=== PATIENT | female | born 1930 | race Caucasian/White ===

== ENCOUNTER 2022-04-08 13:16 | Inpatient (IN) | payer MEDICARE, OTHER ==
[~2022-04-08] VITALS: Ht 162.6 cm; Wt 60.8 kg
[2022-04-08] MEDS ORDERED: MAGN400O6 PO (13:49)
[2022-04-08] MEDS ORDERED: ASPI-1169 PO (13:49)
[2022-04-08] MEDS ORDERED: POVI3780 TP (13:49)
[2022-04-08] MEDS ORDERED: ONDA-97 PO (13:49)
[2022-04-08] MEDS ORDERED: METO25TA20 PO (13:49)
[2022-04-08] MEDS ORDERED: DOCU-141 PO (13:49)
[2022-04-08] MEDS ORDERED: MELA3TAB41 PO (13:49)
[2022-04-08] MEDS ORDERED: CALC500T13 PO (13:49)
[2022-04-08] MEDS ORDERED: FERR325T23 PO (13:49)
[2022-04-08] MEDS ORDERED: ACET-868 PO (13:49)
[2022-04-08] MEDS ORDERED: CRAN425C6 PO (13:49)
[2022-04-08] MEDS ORDERED: LORA-259 PO (13:49)
[2022-04-08] MEDS ORDERED: TRAM50TA2 PO (13:49)
[2022-04-08] MEDS ORDERED: ALLA266C2 TP (13:49)
[2022-04-08] MEDS ORDERED: HYDR-4076 PO (13:49)
[2022-04-08] MEDS ORDERED: HYDR453.3 TP (13:49)
[2022-04-08] MEDS ORDERED: NA P133E RC (13:49)
[2022-04-08] MEDS ORDERED: QUET25TA PO ×2 (13:49)
[2022-04-08] MEDS ORDERED: BISA10SU11 RC (13:49)
[2022-04-08] MEDS ORDERED: AMIN30LI2 PO (13:49)
[2022-04-08] MEDS ORDERED: TAMS-12 PO (13:49)
[2022-04-08] MEDS ORDERED: PANT40TA2 PO (13:49)
[2022-04-08] MEDS ORDERED: POLY17PO4 PO (13:49)
--- NOTE | 2022-04-08 13:56 | NUR ---
MOVE SHEET SUBMITTED.
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
--- NOTE | 2022-04-08 15:07 | NUR ---
SWAB FOR COVID19 SENT LAB
--- NOTE | 2022-04-08 15:16 | NUR ---
URINE SAMPLE SENT TO LAB
[2022-04-08 15:56] LABS: BILIRUBIN,URINE NEGATIVE (NEGATIVE); COLOR,URINE YELLOW (YELLOW); LEUKOCYTE ESTERASE ,URINE 3+ (NEGATIVE); NITRITE, URINE POSITIVE (NEGATIVE); PH,URINE 6.5 (5.0-8.0); PROTEIN,URINE 2+ mg/dl (NEGATIVE); UGLUCOSE NEGATIVE (NEGATIVE); UROBILINOGEN,URINE 0.2 EU/dL (0.2)
[2022-04-08 16:01] LABS: BACTERIA,URINE 3+ /HPF (None Seen); WBC,URINE 51-80 /HPF (0-3)
[2022-04-08 16:02] LABS: SQUAMOUS EPITHELIAL CELL,UR 0-2 /HPF (None Seen)
[2022-04-08 17:47] LABS: BASOPHILS # (AUTO) 0.1 K/uL (0.0-0.2); BASOPHILS % (AUTO) 0.8 % (0.0-2.0); EOSINOPHILS % (AUTO) 3.6 % (0.0-6.0); HEMATOCRIT 30 % (33-45); HEMOGLOBIN 10.1 g/dL (11.5-14.8); LYMPHOCYTES # (AUTO) 1.8 K/uL (0.8-4.8); LYMPHOCYTES % (AUTO) 24.4 % (20.0-44.0); MEAN CORPUSCULAR HGB CONC 33 g/dl (31.0-36.0); MEAN CORPUSCULAR VOLUME 90 fL (82-100); MONOCYTES # (AUTO) 0.9 K/uL (0.1-1.30); MONOCYTES % (AUTO) 12.9 % (2.0-12.0); NEUTROPHILS # (AUTO) 4.2 K/uL (1.8-8.9); NEUTROPHILS % (AUTO) 58.3 % (43.0-81.0); PLATELET COUNT (AUTO) 358 K/uL (150-450); RED BLOOD CELL COUNT(AUTO) 3.38 MIL/uL (4.0-5.2); WHITE BLOOD COUNT (AUTO) 7.3 K/uL (4.3-11.0)
[2022-04-08 18:17] LABS: ACETAMINOPHEN < 10 ug/ml (10-30); ALANINE AMINOTRANSFERASE 14 U/L (12-78); ALBUMIN 2.6 g/dL (3.4-5.0); ALCOHOL, BLOOD < 3 mg/dL (0-0); ALKALINE PHOSPHATASE 98 U/L (46-116); ASPARTATE AMINOTRANSFERASE 15 U/L (15-37); BILIRUBIN,DIRECT 0.1 mg/dL (0.0-0.2); BILIRUBIN,TOTAL 0.3 mg/dL (0.2-1.0); CALCIUM, SERUM 8.4 mg/dL (8.5-10.1); CARBON DIOXIDE 24 mmol/L (21-32); CHLORIDE 104 mmol/L (98-107); CREATININE 1.2 mg/dL (0.6-1.3); GLUCOSE 106 mg/dL (74-106); SODIUM SERUM 136 mmol/L (136-145); TOTAL PROTEIN, SERUM 6.3 g/dL (6.4-8.2); UREA NITROGEN, BLOOD 16 mg/dL (7-18)
[2022-04-08] MEDS: CEPHALEXIN MONOHYDRATE 500 MG CAPSULE PO SCH (18:30)
--- NOTE | 2022-04-08 18:51 | NUR ---
CONTACTED [facility] FOR EVAL. ETA [id number]
--- NOTE | 2022-04-08 20:09 | NUR ---
BED 219-B
--- NOTE | 2022-04-08 21:11 | NUR ---
REPORT GIVEN TO AMARILIS PANDEY
--- NOTE | 2022-04-08 21:12 | NUR ---
PATIENT BEING TRANSFERRED TO [facility]
[2022-04-08] MEDS ORDERED: MAG HYDROX/AL HYDROX/SIMETH 30 ML UDC PO PRN (22:00)
[2022-04-08] MEDS ORDERED: LORAZEPAM 0.5 MG TABLET PO PRN (22:00)
[2022-04-08] MEDS ORDERED: ZOLPIDEM TARTRATE 5 MG TABLET PO PRN (22:00)
[2022-04-08] MEDS ORDERED: BLOOD SUGAR DIAGNOSTIC 1 EACH STRIP IN ONE (22:00)
[2022-04-08] MEDS ORDERED: MAGNESIUM HYDROXIDE 30 ML UDC PO PRN (22:00)
[2022-04-08] MEDS: ACETAMINOPHEN 325 MG TABLET PO PRN (22:28)
--- NOTE | 2022-04-08 22:28 | NUR ---
NURSE NOTE: PT C/O HEADACHE. TYLENOL PO ADMINISTERED ORDERED. PT EDMUNDO WELL, WILL CONT TO MONITOR.
[2022-04-08] MEDS ORDERED: NA PHOS,M-B/NA PHOS,DI-BA 1 EA ENEMA RC PRN (22:30)
[2022-04-08] MEDS ORDERED: TRAMADOL HCL 50 MG TABLET PO PRN (22:30)
[2022-04-08] MEDS ORDERED: CALCIUM CARBONATE 500 MG TAB.CHEW PO PRN (22:30)
[2022-04-08] MEDS ORDERED: hydrALAZINE HCL 25 MG TABLET PO PRN (22:30)
[2022-04-08] MEDS: DOCUSATE SODIUM 100 MG CAPSULE PO SCH (23:13)
[2022-04-08] MEDS: POLYETHYLENE GLYCOL 3350 17 GM POWD.PACK PO SCH (23:13)
[2022-04-08] MEDS: ASPIRIN 81 MG TAB.CHEW PO SCH (23:13)
[2022-04-08] MEDS: METOPROLOL TARTRATE 25 MG TABLET PO SCH (23:13)
[2022-04-08] MEDS: TAMSULOSIN 0.4 MG CAP.SR.24H PO SCH (23:13)
--- NOTE | 2022-04-08 23:14 | NUR ---
NURSE NOTE: HEADACHE SUBSIDED, BUT PT SAID SHE CANNOT GO TO SLEEP. AMBIEN PO ADMINISTERED ORDERED. PT EDMUNDO WELL. WILL CONT TO MONITOR.
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
[2022-04-09] MEDS ORDERED: CEPHALEXIN MONOHYDRATE 250 MG CAPSULE PO SCH
--- NOTE | 2022-04-09 00:14 | NUR ---
NURSE NOTE: PT SLEEPING AT THIS TIME. THERESAIEN EFFECTIVE AT THIS TIME. WILL CONT TO MONITOR.
--- NOTE | 2022-04-09 01:48 | NUR ---
RN NOTE: UPON ADMISSION NOTED BRUISES ON RIGHT FOREHEAD,RIGHT UPPER ARM,RIGHT UPPER CHEST/BREAST AND LEFT UPPER ARM.PLEASE SEE PICTURES IN THE CHART.
[2022-04-09] MEDS: LORAZEPAM 0.5 MG TABLET PO PRN ×2 (02:22→17:53)
--- NOTE | 2022-04-09 02:23 | NUR ---
RN : Patient is anxious,restless,yelling ,given Ativan 1 mg PO for anxiety per clinical assessment.
[2022-04-09] MEDS ORDERED: LORAZEPAM 0.5 MG TABLET PO PRN (04:00)
[2022-04-09 07:11] LABS: CHOLESTEROL 152 mg/dL (<200); HDL CHOLESTEROL 47 mg/dL (40-60); LDL 92 mg/dL (0-99); TRIGLYCERIDES 104 mg/dL (30-150)
[2022-04-09 07:32] LABS: CREATININE 1.2 mg/dL (0.6-1.3)
[2022-04-09] MEDS: PANTOPRAZOLE 40 MG TABLET.DR PO SCH (07:51)
[2022-04-09 08:00] VITALS: BP 152/91
[2022-04-09] MEDS: HYDROCORTISONE 2.5% CREAM 28.4 GM TUBE TP SCH (09:00)
--- NOTE | 2022-04-09 09:25 | NUR ---
CYNTHIA Initial Discharge Plan: Patient resides at [facility] [address] [place] [address] ([phone]). CYNTHIA reached out to Carrie landrum if pt can return back she stated she will let this tag writer know if pt is welcomed back. Pt does not have any supportive contact at this time. CYNTHIA will work with the MD, family, and pt to help coordinate appropriate discharge.
--- NOTE | 2022-04-09 09:25 | NUR ---
CYNTHIA Clinical Note: Pt placed on a 5150 hold for GD. Pt was refusing medications and was not eating at her facility[place] [address] ([phone]). CYNTHIA reached out to Carrie landrum if pt can return back she stated she will let this program writer know if pt is welcomed back. Pt does not have any supportive contact at this time.
--- NOTE | 2022-04-09 09:26 | NUR ---
Treatment Plan: Pt very confused and unable to sign treatment plan.
[2022-04-09] MEDS: CEPHALEXIN MONOHYDRATE 500 MG CAPSULE PO SCH ×2 (10:07→17:08)
[2022-04-09] MEDS: POLYETHYLENE GLYCOL 3350 17 GM POWD.PACK PO SCH ×2 (10:08→17:08)
[2022-04-09] MEDS: DOCUSATE SODIUM 100 MG CAPSULE PO SCH ×2 (10:08→17:07)
[2022-04-09] MEDS: FERROUS SULFATE (325 MG) 325 MG/TAB TABLET PO SCH (10:08)
[2022-04-09] MEDS: METOPROLOL TARTRATE 25 MG TABLET PO SCH ×2 (10:08→17:08)
--- NOTE | 2022-04-09 10:34 | NUR ---
SNF Facility: SW received a call from Carrie landrum from [facility] ([phone]) who stated pt is welcomed back.
--- NOTE | 2022-04-09 11:52 | NUR ---
CYNTHIA Family Contact: CYNTHIA spoke with pt's DPOA daughter Ana Cristina ([phone]) who stated that she will be sending the DPOA documents. Daughter would want pt back to [facility] when stable. SW discussed treatment/discharge plan. Daughter requested PT stating that pt had surgery and needs to have PT. SW notified the staff to request this and assigned nurse requested the evaluation.
[2022-04-09] MEDS: SERTRALINE HCL 25 MG TABLET PO SCH (14:57)
[2022-04-09 16:00] VITALS: BP 143/72
[2022-04-09] MEDS: ASPIRIN 81 MG TAB.CHEW PO SCH (17:07)
[2022-04-09 19:27] VITALS: BP 128/86
[2022-04-09] MEDS: QUETIAPINE FUMARATE 25 MG TABLET PO SCH (22:06)
[2022-04-09] MEDS: TAMSULOSIN 0.4 MG CAP.SR.24H PO SCH (22:06)
[2022-04-10 08:00] VITALS: BP 110/64
[2022-04-10] MEDS: PANTOPRAZOLE 40 MG TABLET.DR PO SCH (08:16)
--- NOTE | 2022-04-10 08:57 | NUR ---
CYNTHIA Family Contact: CYNTHIA met with pt's daughter Ana Cristina STEPHENS ([phone]) and son Mynor and discussed patient's discharge/treatment plan. Family stated that they would want pt to continue physical therapy. They stated that they are considering [facility] in [place]. Family did state if pt still requires physical therapy they would want pt to return back to [facility]. They stated they will follow up with this promotion writer next week. Addendum: 04/11/22 at 0915 by CYNTHIA BATISTA correction son in law Mynor
[2022-04-10] MEDS: DOCUSATE SODIUM 100 MG CAPSULE PO SCH ×2 (09:00→17:00)
[2022-04-10] MEDS: POLYETHYLENE GLYCOL 3350 17 GM POWD.PACK PO SCH ×2 (09:00→17:00)
[2022-04-10] MEDS: FERROUS SULFATE (325 MG) 325 MG/TAB TABLET PO SCH (09:33)
[2022-04-10] MEDS: METOPROLOL TARTRATE 25 MG TABLET PO SCH ×2 (09:36→17:26)
[2022-04-10] MEDS: CEPHALEXIN MONOHYDRATE 500 MG CAPSULE PO SCH ×2 (09:37→17:26)
[2022-04-10] MEDS: HYDROCORTISONE 2.5% CREAM 28.4 GM TUBE TP SCH (09:37)
[2022-04-10] MEDS: SERTRALINE HCL 25 MG TABLET PO SCH (12:15)
[2022-04-10] MEDS: LORAZEPAM 0.5 MG TABLET PO PRN (15:31)
--- NOTE | 2022-04-10 15:31 | NUR ---
NURSE NOTE: PT ANXIOUS AT THIS TIME. YELLING OUT AND RESTLESS. ATIVAN ADMINISTERED ORDERED. PT EDMUNDO WELL. WILL CONT TO MONITOR ORDERED.
[2022-04-10 16:30] VITALS: BP 109/68
--- NOTE | 2022-04-10 16:30 | NUR ---
NURSE NOTE: PT CALM AT THIS TIME. ATIVAN EFFECTIVE. WILL CONT TO MONITOR.
[2022-04-10] MEDS: ASPIRIN 81 MG TAB.CHEW PO SCH (18:00)
[2022-04-10 20:29] VITALS: BP 127/69
[2022-04-10] MEDS: TAMSULOSIN 0.4 MG CAP.SR.24H PO SCH (22:59)
[2022-04-10] MEDS: QUETIAPINE FUMARATE 25 MG TABLET PO SCH (22:59)
[2022-04-11 08:00] VITALS: BP 110/59
[2022-04-11] MEDS: DOCUSATE SODIUM 100 MG CAPSULE PO SCH ×2 (10:15→17:26)
[2022-04-11] MEDS: POLYETHYLENE GLYCOL 3350 17 GM POWD.PACK PO SCH ×2 (10:15→17:26)
[2022-04-11] MEDS: METOPROLOL TARTRATE 25 MG TABLET PO SCH ×2 (10:16→17:27)
[2022-04-11] MEDS: CEPHALEXIN MONOHYDRATE 500 MG CAPSULE PO SCH ×2 (10:17→17:26)
[2022-04-11] MEDS: FERROUS SULFATE (325 MG) 325 MG/TAB TABLET PO SCH (10:18)
[2022-04-11] MEDS: PANTOPRAZOLE 40 MG TABLET.DR PO SCH (10:18)
[2022-04-11] MEDS: HYDROCORTISONE 2.5% CREAM 28.4 GM TUBE TP SCH (11:17)
[2022-04-11] MEDS: SERTRALINE HCL 25 MG TABLET PO SCH (12:17)
[2022-04-11 16:00] VITALS: BP 131/63
[2022-04-11] MEDS: ASPIRIN 81 MG TAB.CHEW PO SCH (17:26)
--- NOTE | 2022-04-11 18:44 | NUR ---
GPS/RN NOTE Patient in bed, resting. Stayed in bed the whole shift. Cooperative and compliant with her medications. No episodes of yelling or screaming noted, remained calm. Will continue to monitor until change of shift.
[2022-04-11 20:00] VITALS: BP 108/61
--- NOTE | 2022-04-11 20:38 | NUR ---
RN NOTES: RECEIVED PATIENT SITTING UP IN GERICHAIR, NO S/SX OF ACUTE DISTRESS NOTED. PATIENT ANXIOUS ,EASILY AGITATED,UNCOOPERTIVE, NEEDY, PARANOID,HYPERVERVAL, PARANOID,YELLING SCREAMING NEEDS FREQUENT REDIRECTION, DENIES SI/HI AT THIS TIME.ENCOURAGE TO VERBALIZED ANY FEELING OR CONCERN, SAFETY MEASURES IN PLACE. WILL CONTINUE TO MONITOR .Q15MIN ROUNDS FOR SAFETY AND BEHAVIOR.
[2022-04-11] MEDS: QUETIAPINE FUMARATE 25 MG TABLET PO SCH (21:24)
[2022-04-11] MEDS: TAMSULOSIN 0.4 MG CAP.SR.24H PO SCH (21:24)
[2022-04-11] MEDS: LORAZEPAM 0.5 MG TABLET PO PRN (23:50)
--- NOTE | 2022-04-11 23:53 | NUR ---
RN NOTES: ANXIETY PT. NOTED VERY AGGRESSIVE , PARANOID ,CONFUSED, NONREDIRECTABLE , PRN ATIVAN 1 MG PO GIVEN PER MD ORDERS , WILL CONTINUE TO MONITOR.
[2022-04-12 08:00] VITALS: BP 135/66
[2022-04-12] MEDS: PANTOPRAZOLE 40 MG TABLET.DR PO SCH (08:23)
[2022-04-12] MEDS: FERROUS SULFATE (325 MG) 325 MG/TAB TABLET PO SCH (10:01)
[2022-04-12] MEDS: DOCUSATE SODIUM 100 MG CAPSULE PO SCH ×2 (10:02→17:14)
[2022-04-12] MEDS: METOPROLOL TARTRATE 25 MG TABLET PO SCH ×2 (10:03→17:14)
[2022-04-12] MEDS: POLYETHYLENE GLYCOL 3350 17 GM POWD.PACK PO SCH ×2 (10:05→17:15)
[2022-04-12] MEDS: HYDROCORTISONE 2.5% CREAM 28.4 GM TUBE TP SCH (10:07)
[2022-04-12] MEDS: CEPHALEXIN MONOHYDRATE 500 MG CAPSULE PO SCH ×2 (10:20→17:18)
[2022-04-12 11:52] LABS: ALBUMIN 2.8 g/dL (3.4-5.0); BILIRUBIN,TOTAL 0.3 mg/dL (0.2-1.0); CREATININE 1.1 mg/dL (0.6-1.3); POTASSIUM 4.5 mmol/L (3.5-5.1)
[2022-04-12 11:55] LABS: BASOPHILS % (AUTO) 0.8 % (0.0-2.0); EOSINOPHILS % (AUTO) 4.5 % (0.0-6.0); HEMATOCRIT 37 % (33-45); HEMOGLOBIN 11.7 g/dL (11.5-14.8); LYMPHOCYTES # (AUTO) 1.8 K/uL (0.8-4.8); LYMPHOCYTES % (AUTO) 30.8 % (20.0-44.0); MEAN CORPUSCULAR HGB CONC 32 g/dl (31.0-36.0); MEAN CORPUSCULAR VOLUME 94 fL (82-100); MONOCYTES # (AUTO) 0.6 K/uL (0.1-1.30); MONOCYTES % (AUTO) 10.3 % (2.0-12.0); NEUTROPHILS # (AUTO) 3.1 K/uL (1.8-8.9); NEUTROPHILS % (AUTO) 53.6 % (43.0-81.0); PLATELET COUNT (AUTO) 359 K/uL (150-450); WHITE BLOOD COUNT (AUTO) 5.7 K/uL (4.3-11.0)
[2022-04-12] MEDS: SERTRALINE HCL 25 MG TABLET PO SCH (12:50)
[2022-04-12] MEDS: LORAZEPAM 0.5 MG TABLET PO PRN (13:40)
--- NOTE | 2022-04-12 13:41 | NUR ---
RN-NOTES PATIENT AGITATED ,SCREAMING NAD YELLING UNCOOPERATIVE. ATIVAN 1MG P.O GIVEN PRN ORDER. WILL CONT. MONITORING FOR SAFETY AND BEHAVIOR. DTR AT BEDSIDE AT THIS TIME.
--- NOTE | 2022-04-12 14:45 | NUR ---
RN-NOTES PATIENT IN BED AWAKE,CALM,NO ACUTE DISTRESS NOTED.
[2022-04-12 16:00] VITALS: BP 116/60
[2022-04-12] MEDS: DIVALPROEX SODIUM 125 MG CAP.SPRINK PO SCH (17:14)
[2022-04-12] MEDS: ASPIRIN 81 MG TAB.CHEW PO SCH (17:14)
--- NOTE | 2022-04-12 18:13 | NUR ---
RN-NOTES PATIENT LYING IN BED INTERMITTENTLY SLEEPING EASILY AROUSED ,A/O X1 NOTED WITH EPISODE OF SCREAMING AND YELLING,AGITATED, UNCOOPERATIVE.PRN MEDICATION GIVEN FOR ANXIETY. NEEDS FREQUENT REDIRECTIONS AND REORIENTATIONS.NEEDS MODERATE ASSIST WITH ADL'S.ENCOURAGED AND ASSIST WITH MEALS.ALL NEEDS ATTENDED AND ANTICIPATED. WILL CONT. MONITORING FOR SAFETY AND BEHAVIOR. WILL ENDORSE TO INCOMING NURSE FOR CONTINUITY OF CARE.
[2022-04-12 20:00] VITALS: BP 125/65
--- NOTE | 2022-04-12 20:09 | NUR ---
RN NOTE: RECEIVED PATIENT IN HER ROOM, NO S/SX OF ACUTE DISTRESS NOTED. PATIENT ANXIOUS ,EASILY AGITATED,UNCOOPERTIVE, NEEDY, PARANOID,HYPERVERVAL, PARANOID,YELLING SCREAMING NEEDS FREQUENT REDIRECTION, DENIES SI/HI AT THIS TIME.ENCOURAGE TO VERBALIZED ANY FEELING OR CONCERN, SAFETY MEASURES IN PLACE. WILL CONTINUE TO MONITOR .Q15MIN ROUNDS FOR SAFETY AND BEHAVIOR.
[2022-04-12] MEDS: TAMSULOSIN 0.4 MG CAP.SR.24H PO SCH (21:24)
[2022-04-12] MEDS: QUETIAPINE FUMARATE 25 MG TABLET PO SCH (21:25)
[2022-04-13 08:00] VITALS: BP 146/69
[2022-04-13] MEDS: PANTOPRAZOLE 40 MG TABLET.DR PO SCH (08:15)
[2022-04-13] MEDS: DOCUSATE SODIUM 100 MG CAPSULE PO SCH ×2 (09:33→16:29)
[2022-04-13] MEDS: DIVALPROEX SODIUM 125 MG CAP.SPRINK PO SCH ×2 (09:33→16:29)
[2022-04-13] MEDS: FERROUS SULFATE (325 MG) 325 MG/TAB TABLET PO SCH (09:33)
[2022-04-13] MEDS: METOPROLOL TARTRATE 25 MG TABLET PO SCH ×2 (09:34→16:30)
[2022-04-13] MEDS: NITROFURANTOIN/MONOHYDRATE MACROCRYSTALS 100 MG CAPSULE PO SCH ×2 (09:36→21:50)
[2022-04-13] MEDS: POLYETHYLENE GLYCOL 3350 17 GM POWD.PACK PO SCH ×2 (09:36→16:30)
[2022-04-13] MEDS: HYDROCORTISONE 2.5% CREAM 28.4 GM TUBE TP SCH (09:37)
[2022-04-13] MEDS: SERTRALINE HCL 25 MG TABLET PO SCH (13:02)
[2022-04-13 16:00] VITALS: BP 131/63
[2022-04-13] MEDS: ASPIRIN 81 MG TAB.CHEW PO SCH (17:02)
--- NOTE | 2022-04-13 18:45 | NUR ---
RN-NOTES PATIENT LYING IN BED ,A/O X1 NOTED WITH EPISODE OF SCREAMING AND YELLING,AGITATED, UNCOOPERATIVE AT TIMES.NEEDS FREQUENT REDIRECTIONS AND REORIENTATIONS.NEEDS MODERATE ASSIST WITH ADL'S.ENCOURAGED AND ASSIST EVERY MEALS. PATIENT WAS ASSISTED WITH AMBULATIONS .ALL NEEDS ATTENDED AND ANTICIPATED. WILL CONT. MONITORING FOR SAFETY AND BEHAVIOR. WILL ENDORSE TO INCOMING NURSE FOR CONTINUITY OF CARE.
[2022-04-13] MEDS: LORAZEPAM 0.5 MG TABLET PO PRN (19:48)
[2022-04-13 20:00] VITALS: BP 107/65
[2022-04-13] MEDS: QUETIAPINE FUMARATE 25 MG TABLET PO SCH (21:50)
[2022-04-13] MEDS: TAMSULOSIN 0.4 MG CAP.SR.24H PO SCH (21:50)
--- NOTE | 2022-04-13 23:05 | NUR ---
RN NOTE OFFERED PATIENT TO GO TO BED. PT REFUSED TO GO BACK TO BED
[2022-04-14 08:00] VITALS: BP 110/68
[2022-04-14] MEDS: PANTOPRAZOLE 40 MG TABLET.DR PO SCH (08:04)
[2022-04-14] MEDS: METOPROLOL TARTRATE 25 MG TABLET PO SCH ×2 (09:00→17:00)
[2022-04-14] MEDS: POLYETHYLENE GLYCOL 3350 17 GM POWD.PACK PO SCH ×2 (09:48→17:00)
[2022-04-14] MEDS: DOCUSATE SODIUM 100 MG CAPSULE PO SCH ×2 (09:49→17:00)
[2022-04-14] MEDS: FERROUS SULFATE (325 MG) 325 MG/TAB TABLET PO SCH (09:49)
[2022-04-14] MEDS: NITROFURANTOIN/MONOHYDRATE MACROCRYSTALS 100 MG CAPSULE PO SCH ×2 (09:49→21:56)
[2022-04-14] MEDS: DIVALPROEX SODIUM 125 MG CAP.SPRINK PO SCH ×2 (09:49→16:35)
[2022-04-14] MEDS: HYDROCORTISONE 2.5% CREAM 28.4 GM TUBE TP SCH (09:49)
[2022-04-14] MEDS: SERTRALINE HCL 25 MG TABLET PO SCH (12:22)
[2022-04-14 16:00] VITALS: BP 145/110
[2022-04-14] MEDS: LORAZEPAM 0.5 MG TABLET PO PRN ×2 (16:35→22:49)
--- NOTE | 2022-04-14 16:35 | NUR ---
NURSE NOTE: PT AGITATED. YELLING OUT LOUD. ATIVAN PO ADMINISTERED ORDERED. PT EDMUNDO WELL WILL CONT TO MONITOR.
--- NOTE | 2022-04-14 17:35 | NUR ---
NURSE NOTE: PT CALM AT THIS TIME. ATIVAN EFFECTIVE AT THIS TIME. WILL CONT TO MONITOR.
[2022-04-14] MEDS: ASPIRIN 81 MG TAB.CHEW PO SCH (18:41)
[2022-04-14 20:40] VITALS: BP 117/61
[2022-04-14] MEDS: QUETIAPINE FUMARATE 25 MG TABLET PO SCH (21:56)
[2022-04-14] MEDS: TAMSULOSIN 0.4 MG CAP.SR.24H PO SCH (21:56)
--- NOTE | 2022-04-14 22:50 | NUR ---
Pt agitated manifested by uncontrollable yelling. Unable to calm down. Ativan 1 mg po prn given as ordered. Will continue to monitor.
--- NOTE | 2022-04-14 23:55 | NUR ---
Post 1 hr Ativan effective. Pt asleep in bed easy to arouse. Bed in low position and alarm bed on. Frequent visual check done for safety. Will continue to monitor. Will endorse to next shift.
[2022-04-15 08:00] VITALS: BP 125/67
[2022-04-15] MEDS: PANTOPRAZOLE 40 MG TABLET.DR PO SCH (08:01)
[2022-04-15] MEDS: FERROUS SULFATE (325 MG) 325 MG/TAB TABLET PO SCH (08:35)
[2022-04-15] MEDS: METOPROLOL TARTRATE 25 MG TABLET PO SCH ×2 (08:36→17:17)
[2022-04-15] MEDS: DIVALPROEX SODIUM 125 MG CAP.SPRINK PO SCH ×2 (08:36→17:46)
[2022-04-15] MEDS: POLYETHYLENE GLYCOL 3350 17 GM POWD.PACK PO SCH ×2 (08:36→17:00)
[2022-04-15] MEDS: NITROFURANTOIN/MONOHYDRATE MACROCRYSTALS 100 MG CAPSULE PO SCH ×2 (08:36→21:59)
[2022-04-15] MEDS: DOCUSATE SODIUM 100 MG CAPSULE PO SCH ×2 (08:37→17:00)
[2022-04-15] MEDS: HYDROCORTISONE 2.5% CREAM 28.4 GM TUBE TP SCH (08:37)
--- NOTE | 2022-04-15 11:15 | NUR ---
Court Notification: SW attempted to contact pt's daughter Ana Cristina ([phone]) and left a voicemail of pt's court hearing for [phone].
--- NOTE | 2022-04-15 11:15 | NUR ---
Court Hearing: Patient's court hearing for 8960 was today and it was upheld for GD.
--- NOTE | 2022-04-15 12:23 | NUR ---
Facility Contact: SW received a call from [facility] ([phone]) and spoke with Killian who stated that they would want to assess the pt.
--- NOTE | 2022-04-15 12:24 | NUR ---
CYNTHIA Family Contact: CYNTHIA spoke with Ana Cristina STEPHENS ([phone]) who stated she would want pt to go to [facility] and requested to speak to the psychiatrist. CYNTHIA notified Dr. Peralta.
[2022-04-15] MEDS: SERTRALINE HCL 25 MG TABLET PO SCH (12:33)
[2022-04-15] MEDS: LORAZEPAM 0.5 MG TABLET PO PRN ×2 (13:22→22:40)
--- NOTE | 2022-04-15 13:22 | NUR ---
NURSE NOTE: PT AGITATED AT THIS TIME. YELLING OUT LOUD. ATIVAN PO ADMINISTERED ORDERED. PT EDMUNDO WELL. WILL CONT TO MONITOR.
--- NOTE | 2022-04-15 14:22 | NUR ---
NURSE NOTES: PT CALM AT THIS TIME. ATIVAN EFFECTIVE. WILL CONT TO MONITOR.
[2022-04-15 16:00] VITALS: BP 132/64
[2022-04-15] MEDS: ASPIRIN 81 MG TAB.CHEW PO SCH (18:56)
[2022-04-15 20:00] VITALS: BP 146/95
[2022-04-15] MEDS: QUETIAPINE FUMARATE 25 MG TABLET PO SCH (21:59)
[2022-04-15] MEDS: TAMSULOSIN 0.4 MG CAP.SR.24H PO SCH (21:59)
[2022-04-16 08:04] VITALS: BP 114/85
[2022-04-16] MEDS: PANTOPRAZOLE 40 MG TABLET.DR PO SCH (08:19)
[2022-04-16] MEDS: POLYETHYLENE GLYCOL 3350 17 GM POWD.PACK PO SCH ×2 (09:22→17:08)
[2022-04-16] MEDS: NITROFURANTOIN/MONOHYDRATE MACROCRYSTALS 100 MG CAPSULE PO SCH ×2 (09:22→20:34)
[2022-04-16] MEDS: DIVALPROEX SODIUM 125 MG CAP.SPRINK PO SCH ×3 (09:23→17:08)
[2022-04-16] MEDS: FERROUS SULFATE (325 MG) 325 MG/TAB TABLET PO SCH (09:23)
[2022-04-16] MEDS: METOPROLOL TARTRATE 25 MG TABLET PO SCH ×2 (09:23→17:07)
[2022-04-16] MEDS: DOCUSATE SODIUM 100 MG CAPSULE PO SCH ×2 (09:23→17:07)
[2022-04-16] MEDS: HYDROCORTISONE 2.5% CREAM 28.4 GM TUBE TP SCH (09:24)
--- NOTE | 2022-04-16 15:29 | NUR ---
Facility Contact: SW received a call from [facility] ([phone]) Judy who stated on stated that Nurse Ramirez will assess the pt between 9-10AM.
[2022-04-16 16:00] VITALS: BP 129/62
[2022-04-16] MEDS: ENSURE ENLIVE CHOC 237 ML CAN PO SCH (17:08)
[2022-04-16] MEDS: ASPIRIN 81 MG TAB.CHEW PO SCH (18:26)
[2022-04-16 19:57] VITALS: BP 123/83
[2022-04-16] MEDS: TAMSULOSIN 0.4 MG CAP.SR.24H PO SCH (21:03)
[2022-04-16] MEDS: QUETIAPINE FUMARATE 25 MG TABLET PO SCH (21:03)
[2022-04-17] MEDS: LORAZEPAM 0.5 MG TABLET PO PRN ×3 (02:25→21:37)
[2022-04-17 08:00] VITALS: BP 114/66
[2022-04-17] MEDS: ENSURE ENLIVE CHOC 237 ML CAN PO SCH ×3 (08:18→17:57)
[2022-04-17] MEDS: PANTOPRAZOLE 40 MG TABLET.DR PO SCH (08:18)
[2022-04-17] MEDS: METOPROLOL TARTRATE 25 MG TABLET PO SCH ×2 (09:00→17:00)
[2022-04-17] MEDS: POLYETHYLENE GLYCOL 3350 17 GM POWD.PACK PO SCH ×2 (09:38→17:00)
[2022-04-17] MEDS: NITROFURANTOIN/MONOHYDRATE MACROCRYSTALS 100 MG CAPSULE PO SCH ×2 (09:39→21:38)
[2022-04-17] MEDS: DOCUSATE SODIUM 100 MG CAPSULE PO SCH ×2 (09:39→17:00)
[2022-04-17] MEDS: FERROUS SULFATE (325 MG) 325 MG/TAB TABLET PO SCH (09:39)
[2022-04-17] MEDS: DIVALPROEX SODIUM 125 MG CAP.SPRINK PO SCH ×3 (09:39→17:57)
[2022-04-17] MEDS: HYDROCORTISONE 2.5% CREAM 28.4 GM TUBE TP SCH (09:41)
[2022-04-17 16:00] VITALS: BP 120/64
[2022-04-17] MEDS: ASPIRIN 81 MG TAB.CHEW PO SCH (18:20)
[2022-04-17] MEDS: QUETIAPINE FUMARATE 25 MG TABLET PO SCH ×2 (18:20→21:38)
--- NOTE | 2022-04-17 19:00 | NUR ---
NURSE NOTE: SPOKE WITH DR GARY IN REGARDS TO PT STATUS. DR GARY ORDERED ATIVAN TO BE DECREASE TO 0.5MG AND ORDERED QUETAPINE 12.5 MG BID. ORDERS PLACED. WILL CONT TO MONITOR.
[2022-04-17 20:20] VITALS: BP 105/54
[2022-04-17] MEDS: TAMSULOSIN 0.4 MG CAP.SR.24H PO SCH (21:38)
[2022-04-18 08:00] VITALS: BP 126/64
[2022-04-18] MEDS: POLYETHYLENE GLYCOL 3350 17 GM POWD.PACK PO SCH ×2 (09:32→16:41)
[2022-04-18] MEDS: PANTOPRAZOLE 40 MG TABLET.DR PO SCH (09:33)
[2022-04-18] MEDS: DOCUSATE SODIUM 100 MG CAPSULE PO SCH ×2 (09:33→16:41)
[2022-04-18] MEDS: DIVALPROEX SODIUM 125 MG CAP.SPRINK PO SCH ×3 (09:33→16:41)
[2022-04-18] MEDS: METOPROLOL TARTRATE 25 MG TABLET PO SCH ×2 (09:34→16:41)
[2022-04-18] MEDS: FERROUS SULFATE (325 MG) 325 MG/TAB TABLET PO SCH (09:34)
[2022-04-18] MEDS: QUETIAPINE FUMARATE 25 MG TABLET PO SCH ×3 (09:34→21:56)
--- NOTE | 2022-04-18 09:45 | NUR ---
[facility]: AMARILIS Ramirez from [facility] ([phone]) came to assess the pt at 9:30AM and stated he will discuss with staff if pt is accepted.
[2022-04-18] MEDS: ENSURE ENLIVE CHOC 237 ML CAN PO SCH ×3 (10:29→16:42)
[2022-04-18] MEDS: HYDROCORTISONE 2.5% CREAM 28.4 GM TUBE TP SCH (11:57)
[2022-04-18 16:00] VITALS: BP 119/69
[2022-04-18] MEDS: ASPIRIN 81 MG TAB.CHEW PO SCH (17:10)
--- NOTE | 2022-04-18 18:11 | NUR ---
RN-NOTES PATIENT IN BED SLEEPING EASILY AROUSED ,A/O X1 .NEEDS MODERATE ASSIST WITH ADL'S .ENCOURAGED AND ASSISTED BY STAFF WITH MEALS.ALL NEEDS ATTENDED AND ANTICIPATED. WILL CONT. MONITORING FOR SAFETY AND BEHAVIOR. WILL ENDORSE TO INCOMING NURSE FOR CONTINUITY OF CARE.
--- NOTE | 2022-04-18 19:30 | NUR ---
PATIENT RECEIVED SLEEPING IN BED. EASILY AWAKENED BY CALLING HER NAME. A/O X1. NEEDS MODERATE ASSIST WITH ADL'S. SAFETY MEASURES IN PLACE. WILL CONTINUE MONITORING FOR SAFETY AND BEHAVIOR. WILL CONTINUE PLAN OF CARE.
[2022-04-18 20:21] VITALS: BP 104/49
[2022-04-18] MEDS: TAMSULOSIN 0.4 MG CAP.SR.24H PO SCH (21:55)
[2022-04-19] MEDS: LORAZEPAM 0.5 MG TABLET PO PRN (02:53)
--- NOTE | 2022-04-19 06:35 | NUR ---
PATIENT ASLEEP IN BED. EASILY AWAKENED BY CALLING HER NAME. A/O X1. NEEDS MODERATE ASSIST WITH ADL'S. DUE MEDS AND PRN MEDS GIVEN NEEDED AND ORDERED. NEEDS ATTENDED. SAFETY MEASURES MAINTAINED. WILL ENDORSE TO NEXT SHIFT NURSE FOR CONTINUITY OF CARE.
[2022-04-19 08:00] VITALS: BP 127/65
[2022-04-19] MEDS: PANTOPRAZOLE 40 MG TABLET.DR PO SCH (08:48)
[2022-04-19] MEDS: ENSURE ENLIVE CHOC 237 ML CAN PO SCH ×3 (08:48→16:11)
[2022-04-19] MEDS: DIVALPROEX SODIUM 125 MG CAP.SPRINK PO SCH ×3 (09:09→16:11)
[2022-04-19] MEDS: DOCUSATE SODIUM 100 MG CAPSULE PO SCH ×2 (09:09→16:11)
[2022-04-19] MEDS: FERROUS SULFATE (325 MG) 325 MG/TAB TABLET PO SCH (09:09)
[2022-04-19] MEDS: METOPROLOL TARTRATE 25 MG TABLET PO SCH ×2 (09:10→16:16)
[2022-04-19] MEDS: POLYETHYLENE GLYCOL 3350 17 GM POWD.PACK PO SCH ×2 (10:03→17:00)
[2022-04-19] MEDS: HYDROCORTISONE 2.5% CREAM 28.4 GM TUBE TP SCH (10:03)
--- NOTE | 2022-04-19 11:50 | NUR ---
CYNTHIA FRIDAY EARLY DISCHARGE ENTRY (04/20/2022): Patient will be discharged to [facility] [address], [place] [address] . Patients daughter Ana Cristina ([phone]) will pick and shovel worker pt at 12:30PM. James/Judy from [facility] ([phone]) is aware. Pt is alert and oriented x1. Patient appears happy to be going to her assisted living. Patient denies suicidal or homicidal ideation. Patient denies visual/auditory hallucinations. Patient will continue to follow-up with (psychiatrist) Dr. Nuñez [address], [place] [address] . Patient presents with euthymic and congruent affect. Pharmacy #[phone], [facility]. Addendum: 04/19/22 at 1409 by CYNTHIA BATISTA Discharge cancelled due to facility not having a nurse available on the weekend. Discharge postponed for Sunday 04/22.
[2022-04-19] MEDS: QUETIAPINE FUMARATE 25 MG TABLET PO SCH ×2 (12:39→21:43)
[2022-04-19 16:00] VITALS: BP 129/61
[2022-04-19] MEDS: ASPIRIN 81 MG TAB.CHEW PO SCH (17:28)
--- NOTE | 2022-04-19 17:32 | NUR ---
RN-NOTES PATIENT IN BED AWAKE ,A/O X1 .NEEDS MAXIMUM ASSIST WITH ADL'S .ENCOURAGED AND ASSISTED BY STAFF EVERY MEALS.PATIENT HAD A POOR FOOD INTAKE BUT DRINK ENSURE . WILL CONT. OFFERING FLUIDS AND SNACKS.GOOD ADRIAN CARE RENDERED.ALL NEEDS ATTENDED AND ANTICIPATED. WILL CONT. MONITORING FOR SAFETY AND BEHAVIOR. WILL ENDORSE TO INCOMING NURSE FOR CONTINUITY OF CARE.
[2022-04-19 20:00] VITALS: BP 138/60
--- NOTE | 2022-04-19 20:40 | NUR ---
RN NOTES: RECEIVED SITTING UP IN VILMA CHAIR, NO S/SX OF ACUTE DISTRESS NOTED. PATIENT ANXIOUS ,EASILY AGITATED,UNCOOPERTIVE, NEEDY, PARANOID,HYPERVERVAL, PARANOID,YELLING SCREAMING NEEDS FREQUENT REDIRECTION, DENIES SI/HI AT THIS TIME.ENCOURAGE TO VERBALIZED ANY FEELING OR CONCERN,REFUSED TO GO BACK TO BED , HIGH FALL RISKS, SAFETY MEASURES IN PLACE. WILL CONTINUE TO MONITOR .Q15MIN ROUNDS FOR SAFETY AND BEHAVIOR.
[2022-04-19] MEDS: TAMSULOSIN 0.4 MG CAP.SR.24H PO SCH (21:43)
[2022-04-20] MEDS: ENSURE ENLIVE CHOC 237 ML CAN PO SCH ×3 (07:49→16:41)
[2022-04-20] MEDS: PANTOPRAZOLE 40 MG TABLET.DR PO SCH (07:49)
[2022-04-20] MEDS: LORAZEPAM 0.5 MG TABLET PO PRN ×2 (07:49→22:54)
--- NOTE | 2022-04-20 07:50 | NUR ---
RN-NOTES PATIENT IN THE HALLWAY UP IN THE VILMA CHAIR A/OX1 YELLING ,SCREAMING. REDIRECTED BUT PATIENT IS UNCOOPERATIVE.ATIVAN 0.25MG P.O GIVEN PRN ORDER.WILL CONT. MONITORING FOR SAFETY AND BEHAVIOR.BUS DRIVER SUPERVISOR ASSISTED PATIENT WITH HER BREAKFAST.
[2022-04-20 08:00] VITALS: BP 145/66
--- NOTE | 2022-04-20 08:50 | NUR ---
RN-NOTES PATIENT IS CALM,NO ACUTE DISTRESS NOTED.
[2022-04-20] MEDS: DIVALPROEX SODIUM 125 MG CAP.SPRINK PO SCH ×3 (09:01→16:41)
[2022-04-20] MEDS: FERROUS SULFATE (325 MG) 325 MG/TAB TABLET PO SCH (09:01)
[2022-04-20] MEDS: DOCUSATE SODIUM 100 MG CAPSULE PO SCH ×2 (09:01→16:41)
[2022-04-20] MEDS: POLYETHYLENE GLYCOL 3350 17 GM POWD.PACK PO SCH ×2 (09:02→16:41)
[2022-04-20] MEDS: METOPROLOL TARTRATE 25 MG TABLET PO SCH ×2 (09:02→16:41)
[2022-04-20] MEDS: HYDROCORTISONE 2.5% CREAM 28.4 GM TUBE TP SCH (11:56)
[2022-04-20] MEDS: QUETIAPINE FUMARATE 25 MG TABLET PO SCH ×2 (12:00→21:21)
[2022-04-20 16:00] VITALS: BP 116/60
[2022-04-20] MEDS: ASPIRIN 81 MG TAB.CHEW PO SCH (17:06)
--- NOTE | 2022-04-20 18:20 | NUR ---
RN-NOTES PATIENT IN THE ROOM UP IN THE VILMA CHAIR A/O X1-2 ,NO ACUTE DISTRESS.COMPLIANT WITH MEDICATIONS.NOTED PATIENT WITH EPISODE OF YELLING AND CALLING DIFFERENT NAMES. NEEDS FREQUENT REDIRECTIONS ,PRN MEDICATION GIVEN. NEEDS ASSIST WITH ADL'S. ALL NEEDS ATTENDED AND ANTICIPATED. WILL CONT. MONITORING FOR SAFETY AND BEHAVIOR. WILL ENDORSE TO INCOMING NURSE FOR CONTINUITY OF CARE.
[2022-04-20 20:00] VITALS: BP 156/89
[2022-04-20] MEDS: TAMSULOSIN 0.4 MG CAP.SR.24H PO SCH (21:21)
[2022-04-20] MEDS: ACETAMINOPHEN 325 MG TABLET PO PRN (22:53)
--- NOTE | 2022-04-21 07:35 | NUR ---
rn note received pt in hallway in barbara chair. pt is a/0 x1. pt is calm. no signs of pain/discomfort at this time
[2022-04-21 08:00] VITALS: BP 126/61
[2022-04-21] MEDS: METOPROLOL TARTRATE 25 MG TABLET PO SCH ×2 (09:00→17:00)
[2022-04-21] MEDS: ENSURE ENLIVE CHOC 237 ML CAN PO SCH ×3 (09:41→17:45)
[2022-04-21] MEDS: PANTOPRAZOLE 40 MG TABLET.DR PO SCH (09:41)
[2022-04-21] MEDS: DIVALPROEX SODIUM 125 MG CAP.SPRINK PO SCH ×3 (09:42→17:46)
[2022-04-21] MEDS: DOCUSATE SODIUM 100 MG CAPSULE PO SCH ×2 (09:42→17:46)
[2022-04-21] MEDS: POLYETHYLENE GLYCOL 3350 17 GM POWD.PACK PO SCH ×2 (09:42→17:46)
[2022-04-21] MEDS: FERROUS SULFATE (325 MG) 325 MG/TAB TABLET PO SCH (09:42)
[2022-04-21] MEDS: HYDROCORTISONE 2.5% CREAM 28.4 GM TUBE TP SCH (09:43)
[2022-04-21] MEDS: QUETIAPINE FUMARATE 25 MG TABLET PO SCH ×2 (12:46→21:35)
[2022-04-21] MEDS: LORAZEPAM 0.5 MG TABLET PO PRN (13:10)
--- NOTE | 2022-04-21 13:10 | NUR ---
NURSE NOTE: PT AGITATED AT THIS TIME. ATIVAN PO ADMINISTERED ORDERED. PT EDMUNDO WELL. WILL CONT TO MONITOR.
--- NOTE | 2022-04-21 14:10 | NUR ---
NURSE NOTE: PT CALM AT THIS TIME. ATIVAN EFFECTIVE AT THIS TIME. WILL CONT TO MONITOR.
[2022-04-21 16:00] VITALS: BP 142/86
[2022-04-21] MEDS: ASPIRIN 81 MG TAB.CHEW PO SCH ×2 (18:00→19:00)
--- NOTE | 2022-04-21 19:40 | NUR ---
RN-NOTES PATIENT IN DINING ROOM WATCHING TV. UP IN THE VILMA CHAIR A/O X1-2 , NO ACUTE DISTRESS. NEEDS ASSIST WITH ADL'S. ALL NEEDS ATTENDED AND ANTICIPATED. WILL CONT. MONITORING FOR SAFETY AND BEHAVIOR.
[2022-04-21 20:34] VITALS: BP 137/70
[2022-04-21] MEDS: TAMSULOSIN 0.4 MG CAP.SR.24H PO SCH (21:35)
--- NOTE | 2022-04-22 06:38 | NUR ---
AT THIS TIME ASLEEP. UNLABORED BREATHING. COMPLIANT WITH MEDICATIONS. PO FLUIDS GIVEN AND TAKEN IN SMALL AMOUNTS. ABLE TO SLEEP WELL. KEPT CLEAN AND DRY. NO ACUTE DRISTRESS NOTED. NO S/S OF PAIN OR DISCOMFORT. FALL AND SAFETY PRECAUTIONS MAINTAINED AT ALL TIMES.
[2022-04-22] MEDS: PANTOPRAZOLE 40 MG TABLET.DR PO SCH (07:46)
[2022-04-22 08:00] VITALS: BP 115/61
--- NOTE | 2022-04-22 08:01 | NUR ---
SW Discharge Note: Patient will be discharged to [facility] [address], [place] [address] . Patients daughter Ana Cristina ([phone]) will peanut picker pt at 12:30PM. James/Judy from [facility] ([phone]) is aware. Pt is alert and oriented x1. Patient appears happy to be going to her assisted living. Patient denies suicidal or homicidal ideation. Patient denies visual/auditory hallucinations. Patient will continue to follow-up with (psychiatrist) Dr. Peralta [address] [address], [place] [address]; ([phone]) at the facility. Patient presents with euthymic and congruent affect.
[2022-04-22] MEDS: ENSURE ENLIVE CHOC 237 ML CAN PO SCH ×2 (08:02→12:05)
[2022-04-22 09:00] VITALS: BP 115/61
[2022-04-22] MEDS: METOPROLOL TARTRATE 25 MG TABLET PO SCH (09:00)
[2022-04-22] MEDS: HYDROCORTISONE 2.5% CREAM 28.4 GM TUBE TP SCH (09:00)
[2022-04-22] MEDS: DIVALPROEX SODIUM 125 MG CAP.SPRINK PO SCH ×2 (09:49→13:00)
[2022-04-22] MEDS: FERROUS SULFATE (325 MG) 325 MG/TAB TABLET PO SCH (09:49)
[2022-04-22] MEDS: DOCUSATE SODIUM 100 MG CAPSULE PO SCH (09:50)
[2022-04-22] MEDS: POLYETHYLENE GLYCOL 3350 17 GM POWD.PACK PO SCH (09:50)
--- NOTE | 2022-04-22 10:00 | NUR ---
RN-CO: DR GARY ORDERED TO DISCONTINUE HOLD AND DISCHARGE PAT TODAY, NOTED AND CARRIED OUT. DR MULLER SEEN AND EXAMIND THE PATIENT AND MEDICALLY CLEARED HER FOR DISCHARGE.
--- NOTE | 2022-04-22 10:53 | NUR ---
RN-CO: DR GARY ORDERED CBC,CMP STAT, NOTED.
[2022-04-22 12:08] LABS: BASOPHILS % (AUTO) 0.3 % (0.0-2.0); EOSINOPHILS % (AUTO) 2.5 % (0.0-6.0); HEMATOCRIT 33 % (33-45); HEMOGLOBIN 10.7 g/dL (11.5-14.8); LYMPHOCYTES % (AUTO) 13.7 % (20.0-44.0); MEAN CORPUSCULAR HGB CONC 32 g/dl (31.0-36.0); MEAN CORPUSCULAR VOLUME 91 fL (82-100); MONOCYTES # (AUTO) 1.1 K/uL (0.1-1.30); MONOCYTES % (AUTO) 15.2 % (2.0-12.0); NEUTROPHILS % (AUTO) 68.3 % (43.0-81.0); PLATELET COUNT (AUTO) 291 K/uL (150-450); RED BLOOD CELL COUNT(AUTO) 3.64 MIL/uL (4.0-5.2); WHITE BLOOD COUNT (AUTO) 7.3 K/uL (4.3-11.0)
[2022-04-22 12:24] LABS: ALBUMIN 2.7 g/dL (3.4-5.0); CALCIUM, SERUM 8.6 mg/dL (8.5-10.1); POTASSIUM 4.4 mmol/L (3.5-5.1); TOTAL PROTEIN, SERUM 6.8 g/dL (6.4-8.2)
--- NOTE | 2022-04-22 12:58 | NUR ---
NURSE NOTE: 89YEAR OL FEMALE DISCHARGED TO DAUGHTER WHO WILL TAKE HER TO [facility] IN [place]. COMPLIANT WITH MEDICATIONS, COOPERATIVE WITH TREATMENT PLANS. PT DENIES SI/HI AND INSTRUCTED TO TAKE HER DAUGHTER TO TAKE HER TO THE CLOSEST ER IF DEVELOPING SI/HI. BEHAVIOR IMPROVED, PSYCHIATRIC TX PLANS MET, MEDICAL TX PLANS DEFERRED FOR CONTINUAL MONITORING. EDUCATED DAUGHTER ABOUT AFTER CARE PLAN AND COPY PROVIDED. RETURNED PERSONAL BELONGINGS TO PT. MEDICATIONS RECONCILED WITH DR GARY AND DR CULP. CALLED IN MEDS TO [employer] TO FILL PRIOR TO PT GOING TO FACILITY. PT REFUSED TO SIGN PAPERWORK AND WOUND PICTURES. PT LEFT THE UNIT AT 1258 VIA WHEELCHAIR. Addendum: 04/22/22 at 1444 by NILESH RECINOS RN PT SEEN BY DR GARY AND CLEARED TO DISCHARGE. ORDERED TO DISCONTINUE THE HOLD. DR CULP SAW PT AND CLEARED HER FOR DISCHARGE.
[2022-04-22] MEDS: QUETIAPINE FUMARATE 25 MG TABLET PO SCH (13:00)
--- NOTE | 2022-04-22 16:07 | NUR ---
FACILITY CONTACT: CYNTHIA RECEIVED A CALL FROM FE ADMIN FROM [place] ([phone]) (F:[phone]). CYNTHIA STATED THAT THIS MERCHANT TAILOR HAD GIVEN PATIENT'S PACKET TO AMARILIS MCHUGH. SHE WANTED TO MERCHANT TAILOR TO RE-FAX. CYNTHIA STATED THAT NURSE GRECIA GAVE DISCHARGE PACKET TO DAUGHTER NOEMÍ AND FE STATED THAT DAUGHTER IS UNABLE TO FIND THE DISCHARGE PACKET. CYNTHIA FAXED PT'S DISCHARGE PACKET TO FE (F:[phone]).
== END 2022-04-22 12:55 | DRG 885 ==
LOC: ER 13:18 → GPS 20:55
PROVIDERS: ADMIT Psychiatry & Neurology Psychosomatic Medicine; ATTEND Nurse Practitioner Acute Care
DX: F29 Unspecified psychosis not due to a substance or known physiological condition (principal); G93.41 Metabolic encephalopathy; E44.0 Moderate protein-calorie malnutrition; N39.0 Urinary tract infection, site not specified; F03.92 Unspecified dementia, unspecified severity, with psychotic disturbance; F03.94 Unspecified dementia, unspecified severity, with anxiety; F03.93 Unspecified dementia, unspecified severity, with mood disturbance; B96.20 Unspecified Escherichia coli [E. coli] as the cause of diseases classified elsewhere; D64.9 Anemia, unspecified; E88.09 Other disorders of plasma-protein metabolism, not elsewhere classified; I10 Essential (primary) hypertension; I48.0 Paroxysmal atrial fibrillation; Z79.82 Long term (current) use of aspirin; Z79.899 Other long term (current) drug therapy; Z91.81 History of falling; Z88.0 Allergy status to penicillin; Z88.2 Allergy status to sulfonamides; Z96.641 Presence of right artificial hip joint
CPT/HCPCS: 36415; 70450-TC; 80048-TC; 80053-TC; 80061-TC; 80076-TC; 81001; 82565-TC; 82962-TC; 85025-TC; 87081-TC; 87086-TC; 87186-TC; 97110-TC; 97112-TC; 97116-TC; 97530-TC; C9803; G0480